=== PATIENT | female | born 1995 ===

== ENCOUNTER 2021-12-29 14:59 | Inpatient (IN) | payer BC ==
[~2021-12-29 14:59] MED LIST: Bupivacaine 0.25% 10 ML SDV ONE
[2021-12-29] MEDS ORDERED: Nalbuphine HCl 10 MG/ 1ML Amp IVPUSH PRN (15:47)
[2021-12-29] MEDS ORDERED: Lidocaine 1% 50 ML MDV INJECT PRN (15:47)
[2021-12-29] MEDS ORDERED: Oxytocin/Lactated Ringers 10 UNIT/1,000 ML BAG IV SCH ×2 (16:00)
[2021-12-29] MEDS: Lactated Ringers 1,000 ML IV SCH (20:32)
[2021-12-29] MEDS ORDERED: Simethicone 80 MG Tab.Chew PO PRN (22:11)
[2021-12-29] MEDS ORDERED: fentaNYL 100 MCG/2 ML SDV EPIDUR PRN (23:48)
[2021-12-29] MEDS ORDERED: diphenhydrAMINE 50 MG/ML SDV IVPUSH PRN (23:48)
[2021-12-29] MEDS ORDERED: Bupivacaine/fentaNYL/NS 100 ML Bag EPIDUR PRN (23:48)
[2021-12-29] MEDS ORDERED: ePHEDrine 50 MG/ML SDV IVPUSH PRN (23:48)
[2021-12-30] MEDS: Lactated Ringers 1,000 ML IV SCH (00:57)
[2021-12-30] MEDS ORDERED: Benzocaine/Menthol 20%-0.5% Spray 78 GM Cannister TOP PRN (10:48)
[2021-12-30] MEDS ORDERED: Acetaminophen 325 MG Tab PO PRN (10:48)
[2021-12-30] MEDS ORDERED: Ibuprofen 600 MG Tab PO PRN (10:48)
[2021-12-30] MEDS ORDERED: Witch Hazel Medicated Pads 40/Jar TOP PRN (10:48)
[2021-12-30] MEDS: Docusate Sodium 100 MG Cap PO SCH (21:16)
[2021-12-31] MEDS: Docusate Sodium 100 MG Cap PO SCH (09:03)
== END 2021-12-31 18:24 | disposition home or self-care (01) | DRG 560 ==
LOC: JD.OBCHECK 14:59 → JD.OB 15:01 → JD.OBCHECK 15:52 → JD.OB 15:53 → OBSVTOIN 12-30 09:41 → JD.OB 12-30 10:06
PROVIDERS: ADMIT Obstetrics & Gynecology; ATTEND Obstetrics & Gynecology
PROC: 10E0XZZ Delivery of Products of Conception, External Approach (ICD-10-PCS; principal; 2021-12-30)
PROC: 0HQ9XZZ Repair Perineum Skin, External Approach (ICD-10-PCS; 2021-12-30)
PROC: 3E033VJ Introduction of Other Hormone into Peripheral Vein, Percutaneous Approach (ICD-10-PCS; 2021-12-30)
DX: O42.02 Full-term premature rupture of membranes, onset of labor within 24 hours of rupture (principal); Z37.0 Single live birth; Z3A.38 38 weeks gestation of pregnancy; O70.0 First degree perineal laceration during delivery
CPT/HCPCS: 36415; 51702; 59025; 59409; 85025; 86592; A9270-GY; J2300; J2590; J3010; J3490; J7120